=== PATIENT | female | born 1980 | race Caucasian/White ===

== ENCOUNTER 2017-07-31 16:45 | Inpatient (IN) | payer OTHER ==
[2017-07-31] MEDS ORDERED: EPSOM SALT 454 GM TP PRN (17:23)
[2017-07-31] MEDS ORDERED: LR 1,000 ML IV PRN (17:23)
[2017-07-31] MEDS ORDERED: TERBUTALINE SULFATE 1 MG/ML VIAL IV PRN (17:23)
[2017-07-31] MEDS ORDERED: OXYTOCIN 20 UNIT in LR 1,000 ML IV PRN (17:23)
[2017-07-31] MEDS ORDERED: OLIVE OIL 118 ML BTL MISC PRN (17:23)
[2017-07-31] MEDS ORDERED: AMMONIA AROMATIC 1 EACH AMP IH ONE (17:53)
[2017-07-31] MEDS ORDERED: LIDOCAINE 1% 300 MG/30 ML SDV ONE (17:53)
[2017-07-31] MEDS ORDERED: OLIVE OIL 118 ML BTL ONE (17:53)
[2017-07-31 17:54] LABS: % IMMATURE GRANULYOCYTES 0.9 % (0.0-1.1); ABSOLUTE IMMATURE GRANULOCYTES 0.11 10^3/uL (0.00-0.10); ADD DIFF? NO; ADD MORPH? NO; ADD SCAN? NO; ATYPICAL LYMPHOCYTE FLAG 0 (0-99); FRAGMENT RBC FLAG 0 (0-99); HEMATOCRIT 33.7 % (38.0-47.0); HEMOGLOBIN 11.8 g/dL (12.6-16.3); LEFT SHIFT FLG 0 (0-99); LIPEMIA HEMOLYSIS FLAG 90 (0-99); MEAN CELL HEMOGLOBIN 30.9 pg (27.9-34.1); MEAN CELL VOLUME 88.2 fL (81.5-99.8); MEAN PLATELET VOLUME 11.2 fL (8.7-11.7); PLATELET CLUMPS FLAG 0 (0-99); PLATELET COUNT 290 10^3/uL (150-400); RED BLOOD CELL COUNT 3.82 10^6/uL (4.18-5.33); RED CELL DISTRIBUTION WIDTH 13.2 % (11.5-15.2)
[2017-07-31] MEDS ORDERED: MISOPROSTOL 200 MCG TAB ONE (17:54)
[2017-07-31] MEDS ORDERED: TERBUTALINE SULFATE 1 MG/ML VIAL ONE (17:54)
[2017-07-31] MEDS ORDERED: OXYTOCIN 10 UNIT/ML VIAL ONE (17:54)
[2017-07-31] MEDS: MISOPROSTOL 100 MCG TAB PO SCH ×2 (18:02→22:02)
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
--- NOTE | 2017-08-01 09:34 | OBPROG ---
Labor Progress Note Assessment/Plan: Assessment: 37 y/o @ 39 1/7 weeks IOL secondary to suspected macrosomia. Plan: Some cervical effacement due to the cytotec overnight. We discussed the options for plan of care, and she opted for pathak catheter now for cervical ripening and low dose pitocin. Will discuss pain management options PRN. 08/01/17 09:31 - . Subjective/Intrapartum Course: 08/01/17 09:29 Pt had contractions all night with the po cytotec. She didn't get a lot of rest due to contractions and monitoring. Currently contractions have spaced out and she has good FM. Objective: 07/31/17 16:15 Patient ABO/Rh A POSITIVE 07/31/17 16:15 - SVE Dilation (cm): 1 Effacement (%): 90 Station: -2 Membranes: Intact - FHR Assessment Hillman FHR (bpm): 120 FHR Pattern Variability: Moderate FHR Category: 1 Oxytocin Orders Assessment - Pre-Induction/Augmentation Assessment Gestational Age: 39 week(s) and 1 day(s) ICD10 Worksheet Patient Problems: Problems Problem Status Onset Elective induction of labor planned Acute - ICD10 Problem Qualifiers (1) Elective induction of labor planned
[2017-08-01] MEDS ORDERED: LR 500 ML IV PRN (10:02)
[2017-08-01] MEDS ORDERED: OXYTOCIN/RINGERS LACTATE 500 ML IV SCH (10:30)
--- NOTE | 2017-08-01 14:05 | OBPROG ---
Labor Progress Note Assessment/Plan: Assessment: 37 y/o @ 39 1/7 weeks IOL secondary to suspected macrosomia. Plan: She has made cervical change with the pathak and is having good contractions. Will get the epidural now and when comfortable will AROM. 08/01/17 09:31 08/01/17 14:03 - . Subjective/Intrapartum Course: 08/01/17 09:29 Pt is having stronger contractions now. 08/01/17 14:00 Objective: 07/31/17 16:15 Patient ABO/Rh A POSITIVE 07/31/17 16:15 - SVE Dilation (cm): 4 Effacement (%): 90 Station: -2 Membranes: Intact - Contraction Pattern Assessment Current Contraction Pattern: Regular (Q 2-4) - FHR Assessment Hillman FHR (bpm): 135 FHR Pattern Variability: Moderate FHR Category: 1 Oxytocin Orders Assessment - Pre-Induction/Augmentation Assessment Gestational Age: 39 week(s) and 1 day(s) ICD10 Worksheet Patient Problems: Problems Problem Status Onset Elective induction of labor planned Acute - ICD10 Problem Qualifiers (1) Elective induction of labor planned
[2017-08-01] MEDS ORDERED: fentaNYL 100 MCG/2 ML INJ ONE (14:17)
[2017-08-01] MEDS ORDERED: fentanYL 4MCG/ML/BUP 0.0625% RTU 250 ML BAG EP ONE (14:18)
[2017-08-01] MEDS ORDERED: BUPIVACAINE 0.25% 30 ML SDV ONE (14:18)
[2017-08-01] MEDS ORDERED: PHENYLEPHRINE HCL 100 MCG/ML SYR ONE (14:19)
--- NOTE | 2017-08-01 15:00 | PDANEPAE ---
ANE History of Present Illness Labor ANE Past Medical History - Pulmonary History Hx Sleep Apnea: No - Chronic Pain History Chronic Pain: No ANE Review of Systems Review of Systems: ANE Patient History - Allergies Allergies/Adverse Reactions: No Known Allergies Allergy (Unverified 07/31/17 17:22) - Home Medications Home medications: home medication list seen and reviewed Home Medications: B-12 07/31/17 [Last Taken Unknown] IRON 07/31/17 [Last Taken Unknown] [place]-3 07/31/17 [Last Taken Unknown] 07/31/17 [Last Taken Unknown] - Smoking Hx Smoking Status: Never smoked ANE Labs/Vital Signs - Labs Result Diagrams: 07/31/17 16:15 - Vital Signs Height: 157.48 cm Weight: 73.028 kg ANE Physical Exam - Airway Neck exam: FROM Mallampati Score: Class 1 Mouth exam: normal dental/mouth exam - Pulmonary Pulmonary: no respiratory distress - Cardiovascular Cardiovascular: regular rate and rhythym - ASA Status ASA Status: II ANE Anesthesia Plan Anesthesia Plan: epidural (PCEA for labor)
--- NOTE | 2017-08-01 15:01 | PREANESOB ---
Obstetric Pre-Anesthesia Info - General Info Proposed Procedure: PCEA : 2 Para: 0 - Info Status: Full Term - Labor Status Cervical Dilation per last OB SVE: 4 Station per last OB SVE: -2 Pitocin: In Use Labor Epidural: Yes Anesthesia Allergies/Adverse Reactions: Allergy/AdvReac Type Severity Reaction Status Date / Time No Known Allergies Allergy Unverified 07/31/17 17:22 Home Medications: Medication Instructions Recorded B-12 07/31/17 IRON 07/31/17 [place]-3 07/31/17 07/31/17 Visit Medications: Generic Name Dose Route Start Last Admin Trade Name Freq PRN Reason Stop Dose Admin Lactated Ringer's 1,000 mls @ 0 mls/hr 07/31/17 17:23 08/01/17 11:00 Lr IV 01/27/18 17:22 1,000 mls PRN PRN Administration SEE PROTOCOL CONDITIONS Protocol Per Protocol Oxytocin 20 unit/ Lactated 1,002 mls @ 150 mls/hr 07/31/17 17:23 Ringer's IV PRN PRN Post- bleeding Lactated Ringer's 500 mls @ 500 mls/hr 08/01/17 10:02 Lr IV PRN PRN Maternal Hypotension Oxytocin/Lactated Ringer's 500 mls @ 0 mls/hr 08/01/17 10:30 08/01/17 11:41 Pitocin 30 Units/Lr (Premix) IV 01/28/18 10:29 500 mls CONT GEORGE Administration Protocol Per Protocol Ibuprofen 600 mg 07/31/17 17:23 Motrin PO 01/27/18 17:22 Q6HRS PRN post , inflammation Magnesium Sulfate 454 gm 07/31/17 17:23 Epsom Salt TP 01/27/18 17:22 Q1H PRN perineal discomfort Fairlee Oil 118 ml 07/31/17 17:23 Sweet Oil MISC 01/27/18 17:22 ONCE PRN perineal massage Terbutaline Sulfate 0.25 mg 07/31/17 17:23 Brethine IV 01/27/18 17:22 ONCE PRN Tachysystole Discontinued Medications Generic Name Dose Route Start Last Admin Trade Name Freq PRN Reason Stop Dose Admin Ammonia (Aromatic Spirit) Confirm 07/31/17 17:53 Ammonia Aromatic Administered 07/31/17 17:54 Dose 1 each IH .STK-MED ONE Bupivacaine HCl Confirm 08/01/17 14:18 Sensorcaine 0.25% Sdv Administered 08/01/17 14:19 Dose 30 ml .ROUTE .STK-MED ONE Ephedrine Sulfate Confirm 07/31/17 17:54 Ephedrine Sulfate Administered 07/31/17 17:55 Dose 50 mg .ROUTE .STK-MED ONE Fentanyl Confirm 08/01/17 14:17 Sublimaze Administered 08/01/17 14:18 Dose 100 mcg .ROUTE .STK-MED ONE Fentanyl/Bupivacaine HCl Confirm 08/01/17 14:18 Fentanyl/Bupivacaine/Ns 4 Mcg/Ml 0.0625%(Rtu) Administered 08/01/17 14:19 Dose 250 ml EP .STK-MED ONE Lidocaine HCl Confirm 07/31/17 17:53 Lidocaine Hcl 1% Administered 07/31/17 17:54 Dose 300 mg .ROUTE .STK-MED ONE Misoprostol 50 mcg 07/31/17 18:00 07/31/17 22:02 Cytotec PO 08/01/17 02:01 50 mcg Q4HRS GEORGE Administration Misoprostol Confirm 07/31/17 17:54 Cytotec Administered 07/31/17 17:55 Dose 1,000 mcg .ROUTE .STK-MED ONE Fairlee Oil Confirm 07/31/17 17:53 Sweet Oil Administered 07/31/17 17:54 Dose 118 ml .ROUTE .STK-MED ONE Oxytocin Confirm 07/31/17 17:54 Pitocin Administered 07/31/17 17:55 Dose 40 unit .ROUTE .STK-MED ONE Phenylephrine HCl Confirm 08/01/17 14:19 Neosynephrine Administered 08/01/17 14:20 Dose 1,000 mcg .ROUTE .STK-MED ONE Terbutaline Sulfate Confirm 07/31/17 17:54 Brethine Administered 07/31/17 17:55 Dose 1 mg .ROUTE .STK-MED ONE - Focused Exam Height/Weight (Nursing): Height 157.48 cm Weight 73.028 kg Labs: 07/31/17 16:15 Patient ABO/Rh A POSITIVE 07/31/17 16:15
--- NOTE | 2017-08-01 15:02 | POSTANESTH ---
Post Anesthetic Evaluation Cardiovascular Status: Normal, Stable Respiratory Status: Normal, Stable Level of Consciousness/Mental Status: Can Participate in Eval Pain Control: Adequate, Prn Tx Ordered Nausea/Vomiting Control: Adequate, Prn Tx Ordered Complications Possibly Related to Anesthesia: None Noted
--- NOTE | 2017-08-01 15:25 | OBPROG ---
Labor Progress Note Assessment/Plan: Assessment: 37 y/o @ 39 1/7 weeks IOL secondary to suspected macrosomia. Plan: Good cervical progression and now comfortable with her epidural. AROM clear fluid, continue pitocin IOL. status is reassuring. 08/01/17 09:31 08/01/17 14:03 08/01/17 15:24 - . Subjective/Intrapartum Course: 08/01/17 09:29 Pt is now comfortable with her epidural. She is resting. 08/01/17 14:00 08/01/17 15:23 Objective: 07/31/17 16:15 Patient ABO/Rh A POSITIVE 07/31/17 16:15 - SVE Dilation (cm): 4 Effacement (%): 90 Station: -2 Membranes: AROM, Intact Amniotic Fluid Color: Clear - Contraction Pattern Assessment Current Contraction Pattern: Regular (Q 2-4) - FHR Assessment Hillman FHR (bpm): 135 FHR Pattern Variability: Moderate FHR Category: 1 Oxytocin Orders Assessment - Pre-Induction/Augmentation Assessment Gestational Age: 39 week(s) and 1 day(s) ICD10 Worksheet Patient Problems: Problems Problem Status Onset Elective induction of labor planned Acute - ICD10 Problem Qualifiers (1) Elective induction of labor planned
[2017-08-01] MEDS ORDERED: LR 500 ML IV SCH (15:30)
[2017-08-01] MEDS ORDERED: fentaNYL 2MCG/ML/BUP 0.1% RTU 100 ML BAG EP ONE (18:54)
[2017-08-01] MEDS ORDERED: ACETAMINOPHEN 500 MG TAB PO PRN (19:13)
--- NOTE | 2017-08-01 19:17 | OBPROG ---
Labor Progress Note Assessment/Plan: Assessment: 37 y/o @ 39 1/7 weeks IOL secondary to suspected macrosomia. Plan: We are working on getting patient comfortable. Her highest temperature as of now is 99, we will give Tylenol now to help lower the baseline. Continue to monitor closely. 08/01/17 09:31 08/01/17 14:03 08/01/17 15:24 08/01/17 19:17 - . Subjective/Intrapartum Course: 08/01/17 09:29 Pt is feeling increased pelvic pressure and suprapubic pain radiating to her back. We have tried multiple boluses with the epidural and Dr Price just administered another bolus. 08/01/17 14:00 08/01/17 15:23 08/01/17 19:13 Objective: 07/31/17 16:15 Patient ABO/Rh A POSITIVE 07/31/17 16:15 - SVE Dilation (cm): 6 Effacement (%): 90 Station: 0 Membranes: AROM, Intact Amniotic Fluid Color: Clear - Contraction Pattern Assessment Current Contraction Pattern: Regular (Q 2-4) - FHR Assessment Hillman FHR (bpm): 160 FHR Pattern Variability: Moderate FHR Category: 1 (episodes of tachycardia with accelerations to 180's) Oxytocin Orders Assessment - Pre-Induction/Augmentation Assessment Gestational Age: 39 week(s) and 1 day(s) ICD10 Worksheet Patient Problems: Problems Problem Status Onset Elective induction of labor planned Acute - ICD10 Problem Qualifiers (1) Elective induction of labor planned
--- NOTE | 2017-08-01 20:08 | OBPROG ---
Labor Progress Note Assessment/Plan: Assessment: 37 y/o @ 39 1/7 weeks IOL secondary to suspected macrosomia. Plan: Good cervical progression now and she is feeling much better after the epidural bolus. baseline has also improved. Will re check in 1-2 hours. 08/01/17 09:31 08/01/17 14:03 08/01/17 15:24 08/01/17 19:17 08/01/17 20:08 - . Subjective/Intrapartum Course: 08/01/17 09:29 Pt is now comfortable with her epidural. She is more relaxed and feeling well. 08/01/17 14:00 08/01/17 15:23 08/01/17 19:13 08/01/17 20:04 Objective: 07/31/17 16:15 Patient ABO/Rh A POSITIVE 07/31/17 16:15 - SVE Dilation (cm): 8 Effacement (%): 90 Station: 0 Membranes: AROM, Intact Amniotic Fluid Color: Clear - Contraction Pattern Assessment Current Contraction Pattern: Regular (Q 2-4) - FHR Assessment Hillman FHR (bpm): 150 FHR Pattern Variability: Moderate FHR Category: 1 Oxytocin Orders Assessment - Pre-Induction/Augmentation Assessment Gestational Age: 39 week(s) and 1 day(s) ICD10 Worksheet Patient Problems: Problems Problem Status Onset Elective induction of labor planned Acute - ICD10 Problem Qualifiers (1) Elective induction of labor planned
[2017-08-02] MEDS ORDERED: ONDANSETRON 4 MG/2 ML VIAL ONE (01:16)
[2017-08-02] MEDS ORDERED: fentaNYL 2MCG/ML/BUP 0.1% RTU 100 ML BAG EP ONE (01:25)
[2017-08-02 02:57] LABS: BASE EXCESS CORD -9.6 mEq/L (-13.6--3.2); CORD BLOOD PCO2 60.2 mmHg (37-60); PH ARTERIAL CORD BLOOD 7.17 (7.10-7.37)
[2017-08-02 02:59] LABS: PH VENOUS CORD BLOOD 7.3 (7.20-7.42)
[2017-08-02] MEDS ORDERED: SIMETHICONE 80 MG TAB CHEW PO PRN (03:08)
[2017-08-02] MEDS ORDERED: ACETAMINOPHEN 325 MG TAB PO PRN (03:08)
[2017-08-02] MEDS ORDERED: HYDROCORTISONE 0.5% CREAM TP PRN (03:08)
--- NOTE | 2017-08-02 03:13 | OBDEL ---
Info Type: Vaginal Presentation at Delivery: Vertex L&D Analgesia/Anesthesia Type: Epidural, Local GBS+: No Intrapartum Medications: Generic Name Dose Route Start Last Admin Trade Name Freq PRN Reason Stop Dose Admin Acetaminophen 1,000 mg 08/01/17 19:13 08/01/17 19:20 Tylenol PO 01/28/18 19:12 1,000 mg Q6HRS PRN Administration Pain, Mild/Fever, Can Take PO Lactated Ringer's 1,000 mls @ 0 mls/hr 07/31/17 17:23 08/01/17 11:00 Lr IV 01/27/18 17:22 1,000 mls PRN PRN Administration SEE PROTOCOL CONDITIONS Protocol Per Protocol Oxytocin/Lactated Ringer's 500 mls @ 0 mls/hr 08/01/17 10:30 08/01/17 11:41 Pitocin 30 Units/Lr (Premix) IV 01/28/18 10:29 500 mls CONT GEORGE Administration Protocol Per Protocol Discontinued Medications Generic Name Dose Route Start Last Admin Trade Name Fresandi PRN Reason Stop Dose Admin Misoprostol 50 mcg 07/31/17 18:00 07/31/17 22:02 Cytotec PO 08/01/17 02:01 50 mcg Q4HRS GEORGE Administration - Infant Care Provider Street Light Servicer/CONCHE OPERATOR: Jeannine Mendez - Hospital Course Intrapartum: 08/01/17 09:29 Pt is now comfortable with her epidural. She is more relaxed and feeling well. 08/01/17 14:00 08/01/17 15:23 08/01/17 19:13 08/01/17 20:04 Indications for Delivery: Elective (suspected macrosomia) Vaginal Delivery - Delivery Provider Delivery Physician/CNM: Britney Hough - Labor and Delivery Onset of Contractions Date: 08/01/17 Onset of Contractions Time: 15:20 Onset of Contractions Type: Induced Rupture of Membranes Date: 08/01/17 Rupture of Membranes Time: 15:20 Rupture of Membranes Type: Artificial Amniotic Fluid Color: Clear Dilation Complete Date: 08/01/17 Dilation Complete Time: 21:34 Placenta Delivery Date: 08/02/17 Placenta Delivery Time: 02:39 Total Hours of Labor: 11 Non-surgical Procedures: Amniotomy Laceration: 2nd Degree, Other (Specify) (B labial) Repair: 2-0, 3-0, Vicryl Vaginal Sponge Count Correct: Yes Vaginal Needle Count Correct: Yes Vaginal Sweep Performed: Yes EBL: 300 Delivery Events: Nuchal Cord (tight x 1) Cord Gases: Cord Gases Cord Blood PCO2 60.2 mmHg (37-60) H 08/02/17 02:47 Cord Base Excess -9.6 mEq/L (-13.6--3.2) 08/02/17 02:47 Cord ABG pH 7.17 (7.10-7.37) 08/02/17 02:47 Cord VBG pH 7.30 (7.20-7.42) 08/02/17 02:47 - Medications Labor Augmentation/Induction Methods Used: Pitocin Labor Augmentation/Induction Indication: Elective (suspected macrosomia) Operative Report - Delivery Cord Gases: Cord Gases Cord Blood PCO2 60.2 mmHg (37-60) H 08/02/17 02:47 Cord Base Excess -9.6 mEq/L (-13.6--3.2) 08/02/17 02:47 Cord ABG pH 7.17 (7.10-7.37) 08/02/17 02:47 Cord VBG pH 7.30 (7.20-7.42) 08/02/17 02:47 Assissted Delivery Assisted Delivery Type: Vacuum Station: +2 Pop offs (Total): 3 Pulls (Total): 4 Assisted Delivery Comment: vacuum performed for tachycardia and maternal exhaustion. pulled head to and then delivered spontaneously with maternal pushing efforts. min bruising no significant injury [place] Data Hillman Delivery Date: 08/02/17 Delivery Time: 02:36 MIRZA: 08/06/17 Gestational Age: 39 week(s) and 3 day(s) Sex of : Male Score (1 Min): 8 Score (5 Min): 9 ICD10 Worksheet Patient Problems: Problems Problem Status Onset Elective induction of labor planned Acute Spontaneous vaginal delivery Acute - ICD10 Problem Qualifiers (1) Elective induction of labor planned (2) Spontaneous vaginal delivery
[2017-08-02] MEDS: IBUPROFEN 600 MG TAB PO PRN ×4 (03:29→22:27)
[2017-08-02] MEDS: MISOPROSTOL 100 MCG TAB PO SCH (05:18)
[2017-08-02] MEDS: HYDROCODONE/APAP 5/325 TAB PO PRN ×4 (06:42→20:21)
[2017-08-02] MEDS: DOCUSATE SODIUM 100 MG CAP PO PRN (20:22)
[2017-08-03] MEDS: IBUPROFEN 600 MG TAB PO PRN ×2 (05:50→11:58)
[2017-08-03 07:22] LABS: HEMATOCRIT 29.7 % (38.0-47.0); HEMOGLOBIN 10.1 g/dL (12.6-16.3)
[2017-08-03 08:37] VITALS: BP 101/60; PULSE 66; RESP 17; TEMP 98; O2SAT 98
--- NOTE | 2017-08-03 10:25 | OBGCSDC ---
General Delivery Information - General Info : 1 Para: 1 Abortions: 0 Type: Vaginal (VAVD) L&D Analgesia/Anesthesia Type: Epidural Admission Date: 07/31/17 Labs: Patient ABO/Rh A POSITIVE 07/31/17 16:15 Hct 29.7 % (38.0-47.0) L 08/03/17 06:00 - Hospital Course Intrapartum: 08/01/17 09:29 Pt is now comfortable with her epidural. She is more relaxed and feeling well. 08/01/17 14:00 08/01/17 15:23 08/01/17 19:13 08/01/17 20:04 : 08/03/17 10:23 Normal PP course s/p VAVD well (h/o augmentation) EBL WNL 2nd degree laceration Vaginal - Delivery Provider Delivery Physician/CNM: Britney Hough - Diagnosis Labor: Induced Rupture of Membranes Type: Artificial Amniotic Fluid Color: Clear Laceration: 2nd Degree, Other (Specify) (B labial) Repair: 2-0, 3-0, Vicryl Delivery Events: Nuchal Cord (tight x 1) - Procedures Assisted Delivery Type: Vacuum Non-surgical Procedures: Amniotomy - Delivery Non-surgical Procedures: Amniotomy EBL: 300 Data Hillman Delivery Date: 08/02/17 Delivery Time: 02:36 MIRZA: 08/06/17 Gestational Age: 39 week(s) and 4 day(s) Sex of Infant: Male [place] Weight (gm): 3948 kg Score (1 Min): 8 Score (5 Min): 9 Discharge Information - Discharge Information Prescriptions: Ibuprofen [Motrin (*)] 600 mg PO Q6HRS PRN #30 tab PRN Reason: post , inflammation Condition: Good Instruction/Follow Up: See Instruction Sheet, Four Weeks
--- NOTE | 2017-08-03 10:28 | OBPP ---
Progress Note Assessment/Plan: Assessment: Routine PP course, s/p VAVD 2nd degree laceration Plan: d/c home today pelvic rest x 6 weeks pericare/sitz baths bleeding prec discussed f/u in 4 weeks 08/03/17 10:25 Subjective/ Course: 08/03/17 10:23 Normal PP course s/p VAVD well (h/o augmentation) EBL WNL 2nd degree laceration Objective: 08/03/17 06:00 Patient ABO/Rh A POSITIVE 07/31/17 16:15 Temp Pulse Resp BP Pulse Ox 36.7 C 66 17 101/60 98 08/03/17 08:00 08/03/17 08:00 08/03/17 08:00 08/03/17 08:00 08/03/17 08:00 Exam: VSS A&O x3 CV: RRR, no murmur Resp: CTA-B Abd: soft, nontender, nondistended uterus firm @U-1 perineum: healing well lochia: min rubra extremities: trace edema, negative mary's sign Uterine Position/Fundal Height: Umbilicus -1, Midline Uterine Tone: Firm
[2017-08-03] MEDS: HYDROCODONE/APAP 5/325 TAB PO PRN (11:31)
[2017-08-03] MEDS: DOCUSATE SODIUM 100 MG CAP PO PRN (11:31)
== END 2017-08-03 16:23 | disposition home or self-care (01) | DRG 775 ==
LOC: FLD 16:45 → FOB 08-02 07:00
PROVIDERS: ADMIT Obstetrics & Gynecology; ATTEND Obstetrics & Gynecology
PROC: 0KQM0ZZ Repair Perineum Muscle, Open Approach (ICD-10-PCS; principal; 2017-08-02)
PROC: 10907ZC Drainage of Amniotic Fluid, Therapeutic from Products of Conception, Via Natural or Artificial Opening (ICD-10-PCS; principal; 2017-08-02)
PROC: 10D07Z6 Extraction of Products of Conception, Vacuum, Via Natural or Artificial Opening (ICD-10-PCS; principal; 2017-08-02)
DX: O36.63X0 Maternal care for excessive fetal growth, third trimester, not applicable or unspecified (principal); Z37.0 Single live birth; O69.82X0 Labor and delivery complicated by other cord entanglement, without compression, not applicable or unspecified; O70.1 Second degree perineal laceration during delivery; Z3A.39 39 weeks gestation of pregnancy; O76 Abnormality in fetal heart rate and rhythm complicating labor and delivery; O75.81 Maternal exhaustion complicating labor and delivery
CPT/HCPCS: J2370; J2405; J3010; J3105